=== PATIENT | male | born 1950 | race Caucasian/White ===

== ENCOUNTER 2024-05-22 08:33 | Day surgery (SDC) | payer MEDICARE, OTHER ==
[2024-05-22] VITALS (18 sets, daily range): BP systolic 106–137; BP diastolic 64–84; PULSE 56–74; TEMP 97.7–98.3
[~2024-05-22] VITALS: Ht 162.6 cm; Wt 62.0 kg
[~2024-05-22 08:33] MED LIST: ASPIRIN 81M81 MG/TA2 PO; CEPHALEXIN500 M1 PO; CIPRO 500MG TA500 MG PO; GLUCOSAMIN 500 PO; GLUCOTROL 5M5 MG/TAB PO; GLUCOTROL XL2.5 MG PO; HYZAAR 50-12.1 UDTAB PO; JANUVIA 100MG100 MG PO; JANUVIA25 MG PO; LANTUS100 U/ML SQ; LIPITOR 10MG10 MG PO; LIPITOR 40MG TA40 MG PO; LOMOTIL 0.025 M1 TAB; LOMOTIL 0.025 M1 TAB PO; NEURONTIN100 MG/CAP PO; PLAVIX 75MG TAB75 MG PO; ULORIC40 MG PO; ZYLOPRIM 300MG300 MG PO; ZYRTEC 10MG10 MG PO
[2024-05-22] MEDS ORDERED: 1/2 NS 1,000 ML IV SCH ×3 (09:00→22:00)
[2024-05-22] MEDS ORDERED: LIPITOR 40MG TA40 MG PO (09:58)
[2024-05-22] MEDS ORDERED: COREG 3.123.125 MG/T PO (10:00)
[2024-05-22] MEDS ORDERED: PLAVIX 75MG TAB75 MG PO (10:01)
[2024-05-22] MEDS ORDERED: JARDIANCE10 PO (10:02)
[2024-05-22 10:03] LABS: HEMATOCRIT 40.5 % (42.0-52.0); MEAN CELL VOLUME 93 fl (80.0-100.0); MEAN CORPUSCULAR HEMOGLOBIN 30 pg (27-31); MEAN CORPUSCULAR HGB CONC 32 g/dl (33.0-37.0); MEAN PLATELET VOLUME 10.2 fl (7.4-10.4); PLATELET COUNT 154 K/mm3 (130-400); RED BLOOD COUNT 4.37 M/mm3 (4.20-5.60); REDCELL DISTRIBUTION WIDTH-CV 17.3 % (11.5-14.5)
[2024-05-22] MEDS ORDERED: ULORIC40 MG PO (10:03)
[2024-05-22] MEDS ORDERED: MULTI VITAMINS1 TAB PO (10:04)
[2024-05-22] MEDS ORDERED: PROBIOTIC ACID1 EAC3 PO (10:05)
[2024-05-22] MEDS ORDERED: BACTROBAN15 GM TOP (10:05)
[2024-05-22] MEDS ORDERED: JANUVIA25 MG PO (10:06)
[2024-05-22] MEDS ORDERED: ENTRESTO 24 MG1 EACH PO (10:06)
[2024-05-22 10:08] LABS: INR 1.1 (0.8-3.0); PROTHROMBIN TIME 12.3 SECONDS (9.7-12.8)
[2024-05-22] MEDS ORDERED: GLUCOTROL XL2.5 MG PO (10:08)
[2024-05-22 10:11] LABS: PARTIAL THROMBOPLASTIN TIME 32.1 SECONDS (26.0-37.0)
[2024-05-22 10:21] LABS: CALCIUM 8.7 mg/dL (8.4-10.2); CREATININE, serum 2.88 mg/dL (0.72-1.25); POTASSIUM 5.7 mEq/L (3.5-4.5)
--- NOTE | 2024-05-22 11:31 | NUR ---
See Merge Report for procedural sedation\notes
[2024-05-22] MEDS ORDERED: Nitroglycerin 100 MCG/ML (Cath Lab) 10 ML VIAL IA SCH (11:33)
[2024-05-22] MEDS ORDERED: Heparin 1,000 UNITS/ML 10 ML Multi-Dose VIAL IV SCH (11:34)
[2024-05-22] MEDS ORDERED: Verapamil 2.5 MG/ML 2 ML VIAL IA SCH (11:34)
[2024-05-22] MEDS ORDERED: Bivalirudin 250 MG in NS 50 ML IV SCH (11:46)
[2024-05-22] MEDS ORDERED: Midazolam 2 MG/2 ML VIAL IV SCH (12:04)
--- NOTE | 2024-05-22 12:17 | NUR ---
Report received pt to transfer to inpt room after procedure.
[2024-05-22] MEDS ORDERED: Iohexol 350 - 100 ML VIAL INCOR ONE (12:18)
[2024-05-22] MEDS ORDERED: fentaNYL 50 MCG/ML 2 ML VIAL IV SCH (12:18)
[2024-05-22] MEDS ORDERED: Ticagrelor 90 MG TAB PO SCH ×2 (12:23→21:00)
--- NOTE | 2024-05-22 12:50 | NUR ---
Patient arrived to the medical unit, alert and oriented x4, VSS. Right radial access in place with 16cc air. Getting angiomax and fluids per orders. Post op VS started.
[2024-05-22] MEDS ORDERED: Bisacodyl 5 MG TAB PO PRN (13:00)
[2024-05-22] MEDS ORDERED: Magnes Hydrox (MOM) 80 MG/ML 30 ML CUP PO PRN (13:30)
[2024-05-22] MEDS ORDERED: Ondansetron 4 MG/2 ML VIAL IV PRN (13:30)
[2024-05-22] MEDS ORDERED: Acetaminophen 325 MG TAB PO PRN (13:30)
[2024-05-22] MEDS ORDERED: Glucagon 1 MG VIAL IM PRN (13:45)
[2024-05-22] MEDS ORDERED: Dextrose 50% Water 25 GM/50 ML SYRINGE IV PRN (13:45)
[2024-05-22] MEDS ORDERED: Dextrose (Glucose) 15 GM (4 x 3.75 GM) Chewable TABLET PACK PO PRN (13:45)
--- NOTE | 2024-05-22 14:50 | NUR ---
Pt continues on post ops, Alert and oriented. Call received from telemetry stating pt had a couple of episodes of bradycardia HT 30'S, pt denies any symptoms. Assessment intake completed.
--- NOTE | 2024-05-22 16:10 | NUR ---
Call received from MECHANICAL INSPECTOR asking for help. Once in room there is blood on the side of the bed, rail and floor. Syringe was attached to the radial compression band. Pt tried to remove air from it and started bleeding. Air was placed back. Pt is alert and oriented. Pt educated about radial compression band. Hygiene was provided. Pt has right now hematoma on site.
--- NOTE | 2024-05-22 16:34 | NUR ---
TR-Band assessed - site is stable with no bleeding - small hematoma, that has been unchanged per USMAN Elkins, present proximal to site. Manual pressure applied to reduce existing hematoma, site remained stable. Coban wrap applied from TRband to upper forearm. Pt tolerated intervention and wrap application well. MD Esteban made aware of aforementioned
--- NOTE | 2024-05-22 16:53 | NUR ---
Patient resting in bed, watching TV. VSS. Denies any pain or discomfort. Awared we will try to remove the radial compression band at 1830.
[2024-05-22] MEDS ORDERED: Carvedilol 3.125 MG TAB PO SCH (17:00)
[2024-05-22] MEDS ORDERED: Sodium Polystyrene Sulf Susp 15 GM/60 ML BOTTLE PO SCH (18:03)
[2024-05-22] MEDS ORDERED: Sodium Bicarbonate/Water,Steri 1,150 ML IV SCH (18:15)
[2024-05-22] MEDS ORDERED: Atorvastatin 40 MG TAB PO SCH (21:00)
[2024-05-22] MEDS ORDERED: Melatonin 3 MG TAB PO PRN (21:00)
[2024-05-22] MEDS ORDERED: Gabapentin 100 MG CAP PO SCH (21:00)
[2024-05-22] MEDS ORDERED: Insulin Glargine-ygfn (Lantus) SQ SCH (21:00)
[2024-05-23] VITALS (7 sets, daily range): BP systolic 121–154; BP diastolic 7–85; PULSE 68–74; TEMP 97.7–98.3
--- NOTE | 2024-05-23 01:45 | NUR ---
patient lying in bed, alert and oriented x4. denies chest pain/discomfort and shortness of breath. TR band intact on right radial site, koban wrapped around right wrist/forearm. 3 ml of air out of TR band around 2200, additional 3 ml out around 2240, 5 ml out around 2300, and remaining 2 ml air out of TR band aroun 0130, TR band and koban removed, bandaid placed over right radial site, CDI, small hematoma noted on right wrist with swelling ti right thumb/hand. no additional remarkable skin findings. IV in LW is patent, site CDI. ambulates with steady gait, call light within reach. pt has no further needs, questions or concerns at this time
[2024-05-23 06:34] LABS: BASO # 0.1 K/mm3 (0.0-0.2); BASO % 0.9 % (0.0-2.0); EOS # 0.3 K/mm3 (0.0-0.7); GRAN # 5.6 K/mm3 (1.4-6.5); HEMATOCRIT 37.9 % (42.0-52.0); LYMPH # 0.9 K/mm3 (1.2-3.4); LYMPH % 11.6 % (20.0-51.0); MEAN CELL VOLUME 93 fl (80.0-100.0); MEAN CORPUSCULAR HEMOGLOBIN 29 pg (27-31); MEAN CORPUSCULAR HGB CONC 32 g/dl (33.0-37.0); MEAN PLATELET VOLUME 10.7 fl (7.4-10.4); MONO % 12.1 % (1.7-9.3); PLATELET COUNT 154 K/mm3 (130-400); RED BLOOD COUNT 4.08 M/mm3 (4.20-5.60); REDCELL DISTRIBUTION WIDTH-CV 17.7 % (11.5-14.5)
[2024-05-23 07:21] LABS: ALBUMIN 2.9 g/dL (3.4-4.8); CALCIUM 9.3 mg/dL (8.4-10.2); CREATININE, serum 3.01 mg/dL (0.72-1.25); PHOSPHOROUS 3.4 mg/dL (2.3-4.7); POTASSIUM 4.9 mEq/L (3.5-4.5)
--- NOTE | 2024-05-23 08:59 | NUR ---
Outside Cutter Hand met with patient to discuss discharge planning. Patient stated he is hopeful he can return home today. Patient lives in [place] with his , Georgiana (ph#[phone]). Patient sees Dr. Soler for primary care and gets most of his medications through [facility]. Patient also uses [facility] in [place] for short term medication needs. Patient does not use any DME and is independent with [employer]LS, including driving. Patient reported he has completed Advance Directives with an youth court judge and his , Georgiana is designated as DPOA-HC. Discharge Plan: Home
[2024-05-23] MEDS ORDERED: Clopidogrel 75 MG TAB PO SCH (09:00)
[2024-05-23] MEDS ORDERED: Febuxostat 40 MG TAB PO SCH (09:00)
[2024-05-23] MEDS ORDERED: Empagliflozin 10 MG TAB PO SCH (09:00)
[2024-05-23] MEDS ORDERED: SITAGLIPTIN 25 MG PO SCH (09:00)
[2024-05-23] MEDS ORDERED: Cetirizine 10 MG TAB PO SCH (09:00)
[2024-05-23] MEDS ORDERED: Multivitamin TAB PO SCH (09:00)
--- NOTE | 2024-05-23 09:00 | NUR ---
Patient resting in bed, alert and oriented x 4, no issues along the night. Site, CDI. small hematoma. Getting fluids per orders. Assessment completed, meds given. No further needs at this time. Call light within reach. Veterans' Counselor arriving.
--- NOTE | 2024-05-23 10:48 | NUR ---
Initial visit; Patient thanked Buyer Liaison for introducing herself and offering God's blessings for healing and staying well.
[2024-05-23] MEDS ORDERED: BRILINTA90 MG PO (11:29)
--- NOTE | 2024-05-23 11:29 | NUR ---
THIS RN INTO ROOM AND PROVIDED TEACHING ON CARDIAC REHAB AND RISK FACTORS FOR CARDIAC DISEASE. PT AND VERBALIZE UNDERSTANDING. PT AND WANTING PT TO DO CARDIAC REHAB HERE. WILL REACH OUT TO SCHEDULE ONCE PT GOES HOME. ALL QUESTIONS ANSWERED. INFORMATION SHEET LEFT WITH PT AND .
--- NOTE | 2024-05-23 12:39 | NUR ---
Patient was provided with discharge information, all questions answered. IV access and telemetry was discontinued.
== END 2024-05-23 13:00 | disposition home or self-care (01) ==
LOC: COL.CAR 08:33 → MEDICAL 12:48 → COL.CAR 05-23 13:00
PROVIDERS: Internal Medicine Cardiovascular Disease; Internal Medicine Nephrology
DX: I25.10 Atherosclerotic heart disease of native coronary artery without angina pectoris (principal); I42.9 Cardiomyopathy, unspecified; E87.5 Hyperkalemia; E78.2 Mixed hyperlipidemia; E11.22 Type 2 diabetes mellitus with diabetic chronic kidney disease; I13.0 Hypertensive heart and chronic kidney disease with heart failure and stage 1 through stage 4 chronic kidney disease, or unspecified chronic kidney disease; E11.319 Type 2 diabetes mellitus with unspecified diabetic retinopathy without macular edema; E11.40 Type 2 diabetes mellitus with diabetic neuropathy, unspecified; N18.4 Chronic kidney disease, stage 4 (severe); I50.21 Acute systolic (congestive) heart failure; Z79.4 Long term (current) use of insulin; Z79.84 Long term (current) use of oral hypoglycemic drugs; Z79.82 Long term (current) use of aspirin; Z95.818 Presence of other cardiac implants and grafts; Z79.01 Long term (current) use of anticoagulants; Z79.899 Other long term (current) drug therapy; Z86.73 Personal history of transient ischemic attack (TIA), and cerebral infarction without residual deficits
CPT/HCPCS: OP; A9270; A9270-GY; C1725; C1769; C1874; C1887; C9600; C9601; J0583; J1644; J1815; J2250; J3010; Q3014; Q9967